=== PATIENT | female | born 1965 | race Caucasian/White ===

== ENCOUNTER 2019-06-28 07:11 | Inpatient (IN) ==
[2019-06-28] MEDS ORDERED: SODIUM CHLORIDE 0.9% 1000ML 1,000 ML IV SCH (07:45)
[2019-06-28 08:25] LABS: Hematocrit (blood only) 40.6 % (37-47); Hemoglobin 14.4 g/dL (12.0-16.0); Mean Corpuscular Hemoglobin 35.1 pg (25-34); Mean Corpuscular Hgb Conc 35.5 g/dL (32-36); RDW Coefficient of Variation 13.9 % (11.5-14.5); RDW Standard Deviation 49.9 fL (36.4-46.3); White Blood Count 4.79 K/uL (4.8-10.8)
[2019-06-28] MEDS ORDERED: LORazepam 1 MG/2 ML VIAL IV STA (08:44)
[2019-06-28] MEDS ORDERED: MULTI-VITAMIN INFUSION 10 ML, THIAMINE HCL 100 MG, FOLIC ACID 1 MG in SODIUM CHLORIDE 0... IV ONE (08:44)
[2019-06-28 08:56] LABS: Basophils # (auto) 0.01 K/uL (0-0.2); Basophils % (auto) 0.2 %; Eosinophils # (auto) 0.04 K/uL (0-0.5); Eosinophils % (auto) 0.8 %; Immature Granulocytes # (auto) 0.01 K/uL (0.00-0.02); Immature Granulocytes % (auto) 0.2 %; Lymphocytes # (auto) 0.49 K/uL (1.2-3.4); Lymphocytes % (auto) 10.2 %; Mean Platelet Volume 10.8 fL (7.4-10.4); Monocytes # (auto) 0.91 K/uL (0.11-0.59); Neutrophils # (auto) 3.33 K/uL (1.4-6.5); Neutrophils % (auto) 69.6 %; Platelet Count 94 K/uL (130-400); Platelet Estimate Decreased (Normal)
[2019-06-28 09:03] LABS: Albumin Globulin Ratio 1.2 (0.9-2); Albumin Level 4.4 gm/dl (3.4-5.0); BUN Creatinine Ratio 23.2 (10-20); Calcium 9.4 mg/dl (8.5-10.1); Creatinine Clr Calc Pharmacy 114.8 ml/min; Est GFR (African American) 124.9; Est GFR (Non-African American) 107.7; Globulin 3.8 gm/dl (2.5-4.0); Thyroid Stimulating Hormone 2.35 uIu/ml (0.300-4.500); Total Protein 8.2 gm/dl (6.4-8.2); Troponin I 0.032 ng/ml (0-0.045)
--- NOTE | 2019-06-28 09:16 | CT Scan Report ---
CT SCAN OF THE BRAIN WITHOUT IV CONTRAST CLINICAL HISTORY: Hallucinations. COMPARISON STUDY: No priors. TECHNIQUE: Unenhanced axial CT scan of the brain is performed from the vertex to the skull base. A d ose lowering technique was utilized adhering to the principles of ALARA. CT DOSE: 537.48 mGy.cm FINDINGS: Brain parenchyma: The brain parenchyma is normal in appearance. There is no hemorrhage, mass effect, or evidence of acute territorial ischemia by CT criteria. Murguia-white matter differentiation is preser antonette. No extra-axial fluid collection is seen. Ventricles, sulci, cisterns: Normal in configuration. Intracranial vasculature: There is minimal atherosclerotic calcification of the cavernous carotid art eries. Calvarium: Unremarkable. Sinuses and mastoids: There is a 10 mm retention cyst in the left maxillary antrum. The remaining vis ualized paranasal sinuses are clear. The mastoid air cells are well pneumatized. Orbits: The bony orbits are grossly intact. IMPRESSION: No acute intracranial abnormality. ACT 112: Negative or not required by law. Electronically signed by: Michael Pham M.D. 06/28/2019 9:15 AM
[2019-06-28 09:41] LABS: Appearance Urine Clear (Clear); Bilirubin Urine Negative (Negative); Blood Urine Negative (Negative); Color Urine Yellow; Glucose Urine UA Negative (Negative); Ketones Urine Trace (Negative); Leukocyte Esterase Urine Negative (Negative); Nitrite Urine Negative (Negative); Protein Urine Negative (Negative); Specific Gravity Urine 1.009 (1.000-1.030); Urobilinogen Urine Negative (Negative); pH Urine 7.5 (4.5-7.5)
--- NOTE | 2019-06-28 09:47 | History & Physical Report ---
Date of Service June 28, 2019 Assessment & Plan (1) Visual hallucinations: - Admit to med surg with tele - 1:1 observation - Safe tray - These hallucinations are grandiose, people including a pirate, a cowboy, 2 other adults who were attempting to break into a car across the street, and multiple children. Patient currently reports there is a woman in her room who is a good friend of hers, and thinks the bed railing is a sleeve of somebody's shirt/coat. - Previous hallucination episodes have occurred during heavy alcohol use - ie 2 yrs ago and 6 yrs ago. - Psych consult ordered (2) Mood disorder: - Psych consulation - Pt displays characteristics consistent with Bipolar type 1 disorder: binge drinking, partying, not sleeping for a week at a time, bursts of energy to clean her home, irritability, followed severely depressed episodes where she cannot seem to stop crying and has a very low mood. She denies any SI or HI. - Never tried medication in the past, would consider Seroquel or Latuda in this setting but will defer to psych (3) Alcohol withdrawal: - Significant etoh use in the past 2.5 weeks likely triggering her hallucinations. -Gabapentin withdrawal protocol with loading dose now -Patient is currently tachycardic, slightly diaphoretic. -Last drink was last evening around midnight prior to presenting to the ER. She was discharged early this morning and then re-presented to the ER around 5:30 AM. Daughter notes that she did not drink any etoh in between being in the hospital both times. She was given dose of Ativan x2 while in the ER last evening. -Patient was hypokalemic last evening but appears to be corrected at this time with recent BMP draw showing K+ = 3.6. Received banana bag in the ER this morning. -Continue thiamine, folic acid, multivitamin daily (4) Elevated liver enzymes: -AST= 183, ALT = 285, trend with a.m. labs -Acute incite secondary to etoh use (5) Right hip pain: - Difficulty walking for few days, previously has no issues with R hip. Unable to recall if she fell but has not been able to put much weight on that leg without significant pain and has reduced mobility. - Check Xray now to r/o fx, CT head was done and is negative for acute abnormalitis - Consider PT/OT consults - Pain control with small doses of tylenol for now, monitoring LFTs, no narco tics with hallucinations, avoid NSAIDs in the setting of heavy etoh use. (6) DVT prophylaxis: - eduar CODE: FULL Dispo: From home, likely to remain in the hospital x 1-2 day for medical management and then transfer to inpatient psych History of Present Illness Primary Care Provider: NO PCP This is a 53 yo F with PMHx of chronic alcohol use, hallucinations, elevated LFTs, hypokalemia who presented to the ER last night for increased hallucinations. The patient returns this morning after being discharged home last evening because of hallucinations worsened. She notes that she was recently down in [place] for 2 weeks, returned on 06/24/19. During that time she would drink up to 12 drinks per night, going from bar to bar late into the night. Since coming home the daughter notes that she has continued to drink however the patient states that her last drink was last evening and only had 1 glass of wine yesterday. Daughter notes that his her behavior regarding alcohol is typical and that she drinks much more often than letting on during my interview. She reports that hallucinations started 2 days ago. She describes it as multiple people including a pirate, cowboy, and two other people who she thought possibly were trying to break into a car across the street from her house, and multiple small children running around. She reports that she attempted to talk to these people last evening but that they would not respond her. She thought it was very strange and felt afraid of these people because she was unsure what they were doing. She also reports last evening after coming home from the ER that she felt as if a shadow was looking in her upstairs hallway, and thought that it was appearing in on her, initially thought maybe it was her , but knew that it could not be him. Patient currently reports there is a woman in her room who is a good friend of hers but that she wont say anything, as pt motions to the wall behind her during the interview, she also thinks the bed railing is a sleeve of somebody's shirt/coat. Patient had burst of energy in the past week where she has been unable to sleep for more than 2 to 3 hours per night. She admits to dressing up and walking around in high heeled shoes all through [place], where normally she would dress in a flat shoe, "like a croc" when she knew she would be walking. Her right hip has been painful for her to place weight on it since coming home Wednesday, and thinks its due to the shoes, but cannot recall if she fell or not. Patient notes she has had the urge to "tear down a closet to clean it" recently at 2am. She denies feeling the urge to buy things impulsively which she cannot afford. She admits to irritability and mood swings daily, followed severely depressed episodes where she cannot seem to stop crying and has a very low mood. Denies suicidal ideations and homicidal ideations. The daughter notes that in 2013 the patient had a similar hallucination episode like this, but was after the of her son. She started using alcohol at that time very heavily which lead to increased visual hallucinations. Daughter cannot recall type of treatment she required after this breakdown. Pt has never has sought out counseling, been evaluated by psychiatry, or been on other forms of medication for mood disorder. Last episode of hallucination was approximately 2 years ago and again involved heavy alcohol use. On a normal day, she has 3-4 drinks at a time. Social Hx -Pt lives independently. Pt works in [place] the majority of the time, and will not be in town until end of July. Daughter is local and lives in her own apartment. -Patient is currently unemployed, occasionally babysits, last time was 3 months ago. 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 -Never used tobacco products, denies illicit drug use -Never incarcerated -Support system includes and daughter, daughter's boyfriend is also present here today Family Hx: - Mother with psychiatric issues, nondiagnosed, including irritability and anger outbursts, mood swings, euphoric at times. Allergies Allergy/AdvReac Type Severity Reaction Status Date / Time codeine AdvReac Vomiting Verified 06/28/19 07:25 Home Medications Home Medications Medication Instructions Recorded Confirmed Type lorazepam [Ativan] 1 mg PO HS PRN 06/28/19 06/28/19 History Past Med/Surg History Family History Other No significant family history Social History Preferred Language: Tamazight Communication Ability: Effective Licensed Certified Orthotist Required: No Beliefs That Will Affect Care: Zoroastrian Zoroastrian Beliefs: Cheondoism Current Living Situation: Spouse Current Living Situation Comment: spouse works 22 hours away Other Information That Helps Us Care for You: Yes ( works 22 hours away, father in home/dementia. mother bossy/unhelpfu) Feels Safe at Home: Yes Safety Concerns: Feels Safe At This Time Smoking Status: Former smoker Do You Dip or Chew Tobacco: No ; Second Hand Exposure: No ; Tobacco Cessation Education Requested by Patient: No Hx Alcohol Use: Yes Alcohol type: wine Hx Substance Use: Yes substance use type: prescription drug Substance Use Type Other:: lorazepam Review of Systems Review of Systems: Constitutional: No fever, sweats or chills Eyes: No diplopia, no worsening or blurred vision ENT: normal hearing, no trouble swallowing Respiratory: No cough, sputum, dyspnea at rest or on exertion Cardiovascular: No chest pain, tightness or palpitations Abdomen: No pain, nausea, vomiting, diarrhea or constipation Musculoskeletal: + Right hip pain, no other joint pain, calf pain, swelling Neurologic: No weakness, numbness/tingling, or balance problems Psychiatric: + Visual hallucinations, multiple people nonthreatening to her, no auditory hallucinations, + alcohol use Skin: No rash or itch Physical Exam Physical Exam: General: awake, alert, speaks rapidly throughout exam, well kempt, cooperative Head: Normocephalic, atraumatic ENT: PERRL, EOMI, no pharyngeal exudate, mucous membranes moist Chest: Clear to auscultation, on room air, no adventitious breath sounds Cardiac: + Sinus tach, no murmur, no JVD, normal peripheral pulses, good capillary refill Abdominal: NABS x 4 quadrants, soft, nontender to palpation, no rebound, guarding or tenderness Extremities: Normal inspection, no peripheral edema or erythema, calfs nontender to palpation Psych: Depressed mood and sad affect, good eye contact, increased restlessness during times looking for things in her purse. Thought process with flight of ideas, easily distracted with stories during conversation, rapid speech, has difficulty using the correct word in sentences to describe things. No SI or HI. Neuro: AAO x 3, strength intact bilaterally and related 5/5, no motor deficits, speech is clear, no peripheral sensory deficits Skin: no rash or erythema Constitutional: WD/WN, vitals as above Eyes: normal visual march by confrontation and + anicteric sclerae Neck: normal visual inspection and trachea midline Respiratory: normal respiratory effort, lungs clear to auscultation Cardiovascular: Rate/Rhythm: regular rhythm and + tachycardic Gastrointestinal (Abdomen): Inspection/Auscultation: abdomen not distended Percussion/Palpation: abdomen soft; abdomen nontender Musculoskeletal: Head/Neck/Chest: normocephalic and head atraumatic Neg for peripheral LE edema, + pedal pulses Skin: no rashes, warm and dry Neurologic: awake; not confused Speech / Cognition: normal speech Expressing concerns appropriately, good verbalization and eye contact Psychiatric: Orientation: oriented x 3 Apperance: appropriately groomed Speech: normal rate/rhythm/volume of speech Affect: + anxious affect Lymphatic: Exam as done by Gayle Richards DO Results & Data Vital Signs (Past 12 Hours) Vital Signs Temp Pulse Pulse Resp BP BP Pulse Ox 06/28/19 09:12 85 17 140/96 95 06/28/19 07:16 37.0 C 91 H 16 131/[address] SCAN OF THE BRAIN WITHOUT IV CONTRAST CLINICAL HISTORY: Hallucinations. COMPARISON STUDY: No priors. TECHNIQUE: Unenhanced axial CT scan of the brain is performed from the vertex to the skull base. A dose lowering technique was utilized adhering to the principles of ALARA. CT DOSE: 537.48 mGy.cm FINDINGS: Brain parenchyma: The brain parenchyma is normal in appearance. There is no hemorrhage, mass effect, or evidence of acute territorial ischemia by CT criteria. Murguia-white matter differentiation is preserved. No extra-axial fluid collection is seen. Ventricles, sulci, cisterns: Normal in configuration. Intracranial vasculature: There is minimal atherosclerotic calcification of the cavernous carotid arteries. Calvarium: Unremarkable. Sinuses and mastoids: There is a 10 mm retention cyst in the left maxillary antrum. The remaining visualized paranasal sinuses are clear. The mastoid air cells are well pneumatized. Orbits: The bony orbits are grossly intact. IMPRESSION: No acute intracranial abnormality. ECG Additional Comments: 28-JUN-2019 08:06:54 [facility]-EDSTAT ROUTINE RETRIEVAL Undetermined rhythm Cannot rule out Anterior infarct , age undetermined Abnormal ECG When compared with ECG of 19-MAR-2015 21:27, Current undetermined rhythm precludes rhythm comparison, needs review ST no longer elevated in Inferior leads T wave inversion no longer evident in Inferior leads 25mm/s 10mm/mV 150Hz 9.0.9 12SL 241 KING: 16 Referred by: REFERRED SELF Unconfirmed Vent. rate 78 BPM AK interval 128 ms QRS duration 74 ms QT/QTc 394/449 ms P-R-T axes 58 63 50 Code Status & VTE Plan Code Status Full Code - discussed with pt and daughter at bedside Supervising Physician Co-Signing Physician Notes Pt seen and examined by me. She had just got out of a hot shower when I came into room and states that did help her to feel a bit better, but she is very anxious because she has continued to have hallucinations since admission. She is anxious for tx as these hallucinations are disturbing to her, but also nervous because "I don't want to be a zombie". Denies chest pain or SOB. Tolerating some PO but is not eating much due to anxiety. Agree with HPI/ROS as noted by PA See above for my exam in PE section Agree with plan as outlined above Hallucinations, alcohol use vs underlying psych disorder seem most likely Seen by psych nurse, awaiting formal eval by psych team. Gabapentin alcohol withdrawal protocol, PRN ativan PG Care Time/CCT Total # of Minutes Spent Total Time Spent with Patient: Total time spent is greater than 50% in coordination of care (as documented) at patient's floor/unit and/or counseling patient: Coding Level of Care Code 09205 Initial Inpt Care Lvl 3 Diagnoses Visual hallucinations R44.1 Mood disorder F39 Alcohol withdrawal F10.239 Complication of substance-induced condition: with unspecified complication Elevated liver enzymes R74.8 Right hip pain M25.551 DVT prophylaxis Z29.9 (1) Alcohol withdrawal Complication of substance-induced condition: with unspecified complication Qualified Code(s): F10.239 - Alcohol dependence with withdrawal, unspecified
[2019-06-28 10:12] LABS: Magnesium 1.6 mg/dl (1.8-2.4); Potassium 3.6 mmol/L (3.5-5.1)
[2019-06-28] MEDS ORDERED: GABAPENTIN 800MG ALCOHOL WITHDRAWAL LOAD PO ONE (11:17)
[2019-06-28] MEDS ORDERED: GABAPENTIN 400 MG CAP PO ONE (11:17)
--- NOTE | 2019-06-28 11:58 | XRay Report ---
XR hip RT min 2V CLINICAL HISTORY: Difficulty walking, alcohol use, concern for fall/fx. COMPARISON: None. DISCUSSION: No fractures or dislocations are visualized. There are no erosive or destructive changes. The joint space appears well preserved for age. IMPRESSION: No fractures or dislocations identified. ACT 112: Negative or not required by law. Electronically signed by: Isreal Rodríguez M.D. 06/28/2019 11:57 AM
[2019-06-28] MEDS ORDERED: ONDANSETRON INJ 2 MG/ML 2 ML VIAL IV PRN (12:11)
--- NOTE | 2019-06-28 12:24 | Electrocardiogram Report ---
Test Reason : Blood Pressure : / mmHG Vent. Rate : 078 BPM Atrial Rate : 077 BPM P-R Int : 128 ms QRS Dur : 074 ms QT Int : 394 ms P-R-T Axes : 058 063 050 degrees QTc Int : 449 ms Poor data quality, interpretation may be adversely affected Sinus rhythm Cannot rule out Anterior infarct , age undetermined Abnormal ECG When compared with ECG of 19-MAR-2015 21:27, No significant change Confirmed by Brady Rivera ([id number]) on 06/28/2019 12:23:57 PM Referred By: REFERRED SELF Confirmed By:Brady Rivera
[2019-06-28] MEDS: SODIUM CHLORIDE 0.9% 1000ML 1,000 ML IV SCH ×2 (12:55→22:04)
[2019-06-28] MEDS ORDERED: MAGNESIUM SULFATE / D5W 1 GM/100 ML BAG IV ONE (13:15)
--- NOTE | 2019-06-28 16:36 | Emergency Department Note ---
Entered by Areli Santiago acting as a scribe for Pritesh Day MD ED Provider Note CHIEF COMPLAINT: Hallucinations HISTORY OF PRESENT ILLNESS: The patient is a 53 year old female who presents to the Emergency Room with complaints of persistent hallucinations starting 1 day ago. The patient reports that she came to the [facility] Emergency Department 1 day ago because she had 2 episodes of hallucinations after drinking a glass of wine. She explains that she was discharged with her friend, who supervised the patient during the entire tie she was out of the hospital, but continued experiencing hallucinations which prompted her visit back to the ED this morning. She states that during these hallucinations she sees people in her back yard and alongside the road. She explains that some of these people have guns and are trying to kill her. She notes that she has been talking to these people and has been trying to fight them. She adds that she has been experiencing these hallucinations for the past day and that they started after drinking a glass of wine. The patient reports that she has never experienced these symptoms before however the patients family explains that the patient did hallucinate 6 years ago after the patients son and that the patient ended up trying to kill herself by overdosing on alcohol. The patients family states that that the patient has been drinking daily but recently traveled to [place] to visit her 1 week ago and that this trip worsened her drinking. They explain that when they picked the patient up from this trip she was drunk, nauseated and vomiting. They note that the patient usually drink 1 to 4 glasses of bourbon per day. They add that the patient has not been left alone. The patient reports that when she came to the hospital 1 day ago for these same symptoms she was given Ativan that improved her nausea and insomnia. She states that her father has dementia and that this has worsened her mood and stressed her out, driving her to drink more alcohol. Pt denies LOC, headache, fevers, chills, diaphoresis, neck pain, chest pain, breathing difficulties, back pain, melena, hematochezia, urinary symptoms, numbness, weakness, lymphadenopathy, rash, or other complaints. REVIEW OF SYSTEMS: See HPI for pertinent positives and negatives. A total of ten systems were reviewed and were otherwise negative. PMHx/PSHx: Anxiety, Hallucinations, HTN, Mood disorder, Pneumonia. SOCIAL HISTORY: Patient lives at home. Former smoker. PHYSICAL EXAM: GENERAL: Patient is anxious appearing. Awake, alert, in no distress HENT: Normocephalic, atraumatic. Oropharynx unremarkable. EYES: PERRL. Normal conjunctiva. Sclera non-icteric. NECK: Inspection normal. Non-tender. Supple. No nuchal rigidity. FROM. No masses. RESPIRATORY: Clear to auscultation. No wheezes. No rales. Normal respiratory effort. CARDIAC: Normal rate. Normal rhythm. No murmurs. No rubs. Extremities warm and well perfused. Pulses equal. No JVD. GI: Soft, non-distended. No tenderness to palpation. No rebound or guarding. No masses. RECTAL: Deferred. MUSCULOSKELETAL: Atraumatic. Chest examination reveals no tenderness. The back is symmetrical on inspection without obvious abnormality. There is no CVA tenderness to palpation. No joint edema. LOWER EXTREMITIES: Calves are equal size bilaterally and non-tender. No edema. No discoloration. NEURO: Normal sensorium. No sensory or motor deficits noted. Cranial nerves intact. PSYCH: Auditory and visual hallucinations. No SI. Speech was pressured but normal. SKIN: No rash or jaundice noted. EMERGENCY DEPARTMENT COURSE: 0738: Past medical records reviewed. The patient was evaluated in room A6, and a complete history and physical examination were performed. 09: I discussed the patients case with Yocasta Herrera PA-C. Dr. Richards [facility] hospitalist will evaluate the patient for further management. MEDICAL DECISION MAKING: Prior records/ancillary studies reviewed. Triage Nursing notes reviewed and agree them. Additional history obtained from the family. The patient's history was concerning for visual and auditory hallucinations and history of alcohol use. Differential diagnosis: Etiologies such as alcohol withdrawal, toxicologic, infection, hypoglycemia, electrolyte abnormalities, cardiac sources, intracerebral event, neurologic, m ood disorder, thought disorder as well as others were entertained. Physical examination: The patient had normal sensorium although there was some periods with visual hallucinations.. No trauma noted. ER treatment provided: IV NSS 1 L bolus Banana bag IV IV Ativan Diagnostic interpretation by me: The electrocardiogram was negative for pathologic change. There was no QRS widening or interval prolongation. The labs revealed an unremarkable CBC and chemistry panel. Hypokalemia improved. Tox cream negative. Imaging studies: CT imaging of the brain was performed and was negative for acute process. The patient will need to be evaluated by medicine as well as psychiatry. Her significant alcohol use puts her at risk for withdrawal. Consultation: A consultation was placed with the hospitalist. The case was discussed and diagnostics were reviewed. The patient was evaluated in the ER for further treatment. IMPRESSION: Visual hallucinations, Elevated LFTs, Alcohol withdrawal PLAN: Being Evaluated by Hospitalist The scribe's documentation has been prepared under my direction and personally reviewed by me in its entirety. I confirm that the note above accurately reflects all work, treatment, procedures, and medical decision making performed by me. 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 mother bossy/unhelpfu) Feels Safe at Home: Yes Safety Concerns: Feels Safe At This Time Smoking Status: Former smoker Do You Dip or Chew Tobacco: No ; Second Hand Exposure: No ; Tobacco Cessation Education Requested by Patient: No Hx Alcohol Use: Yes Alcohol type: wine Hx Substance Use: Yes substance use type: prescription drug Substance Use Type Other:: lorazepam Results & Data Vital Signs Vital Signs - 24 hr 06/28/19 07:16 06/28/19 09:12 Temperature 37.0 C Temperature Source Oral Pulse Rate 91 H Pulse Rate [Apical] 85 Pulse Rhythm [Apical] Regular Respiratory Rate 16 17 Respiratory Effort / Characteristics Non-Labored Spontaneous Spontaneous Respiratory Depth Normal Respiratory Pattern Regular Blood Pressure 131/89 Blood Pressure [Left Arm] 140/96 Blood Pressure Mean 103 Blood Pressure Mean [Left Arm] 110 Blood Pressure Position Sitting Pulse Oximetry 96 95 Oxygen Delivery Method Room Air Room Air Sepsis Recent Fever Within 48 Hours No Sepsis New/Unexplained Change in Mental Status No Sepsis Action Taken by Nursing No Action Required Home Medications Current Medication List: was personally reviewed by me Laboratory Data Attestation: I reviewed the patient's lab results. Result diagrams: 06/28/19 08:10 06/28/19 09:38 Lab Results 06/28/19 06/28/19 06/28/19 Range/Units 08:10 08:10 09:05 WBC 4.79 L (4.8-10.8) K/uL RBC 4.10 L (4.2-5.4) M/uL Hgb 14.4 (12.0-16.0) g/dL Hct 40.6 (37-47) % MCV 99.0 (80-100) fL MCH 35.1 H (25-34) pg MCHC 35.5 (32-36) g/dL RDW Std Deviation 49.9 H (36.4-46.3) fL RDW Coeff of Cj 13.9 (11.5-14.5) % Plt Count 94 L (130-400) K/uL MPV 10.8 H (7.4-10.4) fL Immature Gran % (Auto) 0.2 % Neut % (Auto) 69.6 % Lymph % (Auto) 10.2 % [place] % (Auto) 19.0 % Eos % (Auto) 0.8 % Baso % (Auto) 0.2 % Immature Gran # (Auto) 0.01 (0.00-0.02) K/uL Neut # (Auto) 3.33 (1.4-6.5) K/uL Lymph # (Auto) 0.49 L (1.2-3.4) K/uL [place] # (Auto) 0.91 H (0.11-0.59) K/uL Eos # (Auto) 0.04 (0-0.5) K/uL Baso # (Auto) 0.01 (0-0.2) K/uL Platelet Estimate Decreased L (Normal) Sodium 138 (136-145) mmol/L Potassium (3.5-5.1) mmol/L Chloride 103 (98-107) mmol/L Carbon Dioxide 25 (21-32) mmol/L Anion Gap 10.0 (3-11) BUN 13 (7-18) mg/dl Creatinine 0.54 L (0.6-1.2) mg/dl Est Cr Clr Drug Dosing 114.8 ml/min Est GFR ( Amer) 124.9 Est GFR (Non-Af Amer) 107.7 BUN/Creatinine Ratio 23.2 H (10-20) Glucose 98 (70-99) mg/dl Calcium 9.4 (8.5-10.1) mg/dl Magnesium (1.8-2.4) mg/dl Total Bilirubin 1.0 (0.2-1) mg/dl AST (15-37) U/L ALT 285 H (12-78) U/L Alkaline Phosphatase 74 (45-117) U/L Troponin I 0.032 (0-0.045) ng/ml Total Protein 8.2 (6.4-8.2) gm/dl Albumin 4.4 (3.4-5.0) gm/dl Globulin 3.8 (2.5-4.0) gm/dl Albumin/Globulin Ratio 1.2 (0.9-2) TSH 2.350 (0.300-4.500) uIu/ml Urine Color Yellow Urine Appearance Clear (Clear) Urine pH 7.5 (4.5-7.5) Ur Specific [place] 1.009 (1.000-1.030) Urine Protein Negative (Negative) Urine Glucose (UA) Negative (Negative) Urine Ketones Trace H (Negative) Urine Blood Negative (Negative) Urine Nitrite Negative (Negative) Urine Bilirubin Negative (Negative) Urine Urobilinogen Negative (Negative) Ur Leukocyte Esterase Negative (Negative) 06/28/19 Range/Units 09:38 WBC (4.8-10.8) K/uL RBC (4.2-5.4) M/uL Hgb (12.0-16.0) g/dL Hct (37-47) % MCV (80-100) fL MCH (25-34) pg MCHC (32-36) g/dL RDW Std Deviation (36.4-46.3) fL RDW Coeff of Cj (11.5-14.5) % Plt Count (130-400) K/uL MPV (7.4-10.4) fL Immature Gran % (Auto) % Neut % (Auto) % Lymph % (Auto) % [place] % (Auto) % Eos % (Auto) % Baso % (Auto) % Immature Gran # (Auto) (0.00-0.02) K/uL Neut # (Auto) (1.4-6.5) K/uL Lymph # (Auto) (1.2-3.4) K/uL [place] # (Auto) (0.11-0.59) K/uL Eos # (Auto) (0-0.5) K/uL Baso # (Auto) (0-0.2) K/uL Platelet Estimate (Normal) Sodium (136-145) mmol/L Potassium 3.6 D (3.5-5.1) mmol/L Chloride (98-107) mmol/L Carbon Dioxide (21-32) mmol/L Anion Gap (3-11) BUN (7-18) mg/dl Creatinine (0.6-1.2) mg/dl Est Cr Clr Drug Dosing ml/min Est GFR ( Amer) Est GFR (Non-Af Amer) BUN/Creatinine Ratio (10-20) Glucose (70-99) mg/dl Calcium (8.5-10.1) mg/dl Magnesium 1.6 L (1.8-2.4) mg/dl Total Bilirubin (0.2-1) mg/dl AST 183 H (15-37) U/L ALT (12-78) U/L Alkaline Phosphatase (45-117) U/L Troponin I (0-0.045) ng/ml Total Protein (6.4-8.2) gm/dl Albumin (3.4-5.0) gm/dl Globulin (2.5-4.0) gm/dl Albumin/Globulin Ratio (0.9-2) TSH (0.300-4.500) uIu/ml Urine Color Urine Appearance (Clear) Urine pH (4.5-7.5) Ur Specific [place] (1.000-1.030) Urine Protein (Negative) Urine Glucose (UA) (Negative) Urine Ketones (Negative) Urine Blood (Negative) Urine Nitrite (Negative) Urine Bilirubin (Negative) Urine Urobilinogen (Negative) Ur Leukocyte Esterase (Negative) Administered Medications Sodium Chloride (Nss 1000ml) 1,000 mls @ 125 mls/hr IV .Q8H SAM Stop: 06/29/19 12:10 Last Admin: 06/28/19 12:55 Dose: 125 mls/hr Documented by: [id number] Discontinued Medications Gabapentin (Gabapentin 800mg Alcohol Withdrawal Load) 1 ea PO ONE ONE; Protocol Stop: 06/28/19 11:18 Last Admin: 06/28/19 12:54 Dose: 1 ea Documented by: [id number] Gabapentin (Neurontin) 800 mg PO NOW ONE Stop: 06/28/19 11:18 Last Admin: 06/28/19 14:07 Dose: Not Given Documented by: [id number] Sodium Chloride (Nss 1000ml) 1,000 mls @ 999 mls/hr IV .Q1H1M SAM Stop: 06/28/19 08:45 Last Infusion: 06/28/19 09:35 Dose: 0 mls/hr Documented by: [id number] Admin: 06/28/19 08:20 Dose: 999 mls/hr Documented by: [id number] Lorazepam (Ativan) 1 mg in 2 mls @ 2 mls/min IV NOW STA Stop: 06/28/19 08:45 Last Admin: 06/28/19 08:48 Dose: 2 mls/min Documented by: [id number] Multivitamins 10 ml/ Thiamine HCl 100 mg/ Folic Acid 1 mg/Sodium Chloride 1 ,011.2 mls @ 1,011.2 mls/hr IV .Q1H ONE Stop: 06/28/19 09:43 Last Infusion: 06/28/19 11:02 Dose: 0 mls/hr Documented by: [id number] Admin: 06/28/19 09:35 Dose: 1,011.2 mls/hr Documented by: [id number] Magnesium Sulfate/Dextrose (Magnesium Sulfate / D5w) 1 gm in 100 mls @ 100 mls/hr IV ONE ONE Stop: 06/28/19 14:14 Last Infusion: 06/28/19 15:47 Dose: 0 mls/hr Documented by: [id number] Admin: 06/28/19 14:40 Dose: 100 mls/hr Documented by: [id number] Imaging Data Radiologist's Impression: Radiology results as stated below per my review and the radiologist's interpretation: CT SCAN OF THE BRAIN WITHOUT IV CONTRAST CLINICAL HISTORY: Hallucinations. COMPARISON STUDY: No priors. TECHNIQUE: Unenhanced axial CT scan of the brain is performed from the vertex to the skull base. A dose lowering technique was utilized adhering to the principles of ALARA. CT DOSE: 537.48 mGy.cm FINDINGS: Brain parenchyma: The brain parenchyma is normal in appearance. There is no hemorrhage, mass effect, or evidence of acute territorial ischemia by CT criteria. [place]-white matter differentiation is preserved. No extra-axial fluid collection is seen. Ventricles, sulci, cisterns: Normal in configuration. Intracranial vasculature: There is minimal atherosclerotic calcification of the cavernous carotid arteries. Calvarium: Unremarkable. Sinuses and mastoids: There is a 10 mm retention cyst in the left maxillary antrum. The remaining visualized paranasal sinuses are clear. The mastoid air cells are well pneumatized. Orbits: The bony orbits are grossly intact. IMPRESSION: No acute intracranial abnormality. ACT 112: Negative or not required by law. Electronically signed by: Michael Pham M.D. 06/28/2019 9:15 AM ECG Data Attestation: I personally reviewed and interpreted this ECG as follows: Indication: + nausea Rate (beats per minute): 78 Rhythm: sinus rhythm ECG Intervals/blocks: + Normal QRS ECG Ruby: + Normal ECG ST segments: no ST depression and no ST elevation ECG Findings: + Other (Poor R wave progression.) Comparison ECG Date: from (03/19/15) Change: no significant change Blood Pressure Blood Pressure Findings: Elevated blood pressure Blood Pressure Disposition: further management by hospitalist Discharge Plan Visit Data *Final* Discharge Date/Time: 06/28/19 11:26 Chief Complaint: Mental Health Evaluation Stated Complaint: HALUCINATIONS GOTTEN WORSE-SEEN EARLIER ED Provider: Pritesh Day ED Midlevel Provider: Lisha Hurtado Discharge Problem: Visual hallucinations, Elevated LFTs, Alcohol withdrawal Patient Disposition: Admitted As Inpatient Discharge Instructions Interventions: ED Discharge Assessment Last Done: 06/28/19 11:26 Discharge Problem: Alcohol withdrawal Qualifiers: Complication of substance-induced condition: with unspecified complication Qualified Code(s): F10.239 - Alcohol dependence with withdrawal, unspecified The scribe's documentation has been prepared under my direction and personally reviewed by me in its entirety. I confirm that the note above accurately reflects all work, treatment, procedures, and medical decision making performed by me.
[2019-06-28] MEDS: GABAPENTIN 400 MG CAP PO SCH ×2 (17:38→23:20)
[2019-06-28] MEDS: ACETAMINOPHEN 325 MG TAB PO PRN (18:35)
[2019-06-28] MEDS ORDERED: LORazepam 0.5 MG/1 ML VIAL IV PRN (19:07)
[2019-06-28] MEDS ORDERED: LORazepam 1 MG TAB PO PRN (21:57)
[2019-06-28] MEDS ORDERED: LORazepam 1 MG/2 ML VIAL IV PRN ×2 (22:19→22:49)
[2019-06-28] MEDS ORDERED: LORazepam 3 MG/6 ML VIAL IV PRN (22:49)
[2019-06-28] MEDS ORDERED: ATIVAN IV ALCOHOL WITHDRAWL IV PRN (22:49)
[2019-06-28] MEDS: LORazepam 2 MG/4 ML VIAL IV PRN (23:19)
[2019-06-29] MEDS: LORazepam 2 MG/4 ML VIAL IV PRN (00:30)
[2019-06-29] MEDS: risperiDONE 1 MG TABLET PO PRN ×2 (00:31→07:31)
[2019-06-29] MEDS: SODIUM CHLORIDE 0.9% 1000ML 1,000 ML IV SCH (05:44)
--- NOTE | 2019-06-29 06:32 | Communication Note ---
Date of Service: June 29, 2019 Called to bedside for severe agitatation with visual hallucinations. Pt with hx severe EtoH abuse on gabapentin protocol. Tachycardic, AWSS 11. Risperidone given, Lorazpam AWSS 1-3mg IV orders placed. Pt improved and stable on recheck overnight.
[2019-06-29] MEDS ORDERED: GABAPENTIN 400 MG CAP PO SCH (07:15)
[2019-06-29] MEDS: MULTIVITAMIN TAB PO SCH (07:30)
[2019-06-29] MEDS: FOLIC ACID 400 MCG TAB PO SCH (07:30)
[2019-06-29 07:46] LABS: Hematocrit (blood only) 37.7 % (37-47); Hemoglobin 12.5 g/dL (12.0-16.0); Mean Corpuscular Hemoglobin 34.4 pg (25-34); Mean Corpuscular Hgb Conc 33.2 g/dL (32-36); Mean Corpuscular Volume 103.9 fL (80-100); Red Blood Count 3.63 M/uL (4.2-5.4); White Blood Count 3.54 K/uL (4.8-10.8)
[2019-06-29 08:14] LABS: Mean Platelet Volume 10.3 fL (7.4-10.4); Platelet Count 74 K/uL (130-400)
[2019-06-29 08:25] LABS: Alanine Aminotransferase 220 U/L (12-78); Albumin Globulin Ratio 1.1 (0.9-2); Albumin Level 3.3 gm/dl (3.4-5.0); Alkaline Phosphatase 61 U/L (45-117); Aspartate Aminotransferase 163 U/L (15-37); BUN Creatinine Ratio 14.4 (10-20); Bilirubin,Total 0.7 mg/dl (0.2-1); Blood Urea Nitrogen 4 mg/dl (7-18); Calcium 7.8 mg/dl (8.5-10.1); Carbon Dioxide 22 mmol/L (21-32); Chloride 114 mmol/L (98-107); Creatinine Clr Calc Pharmacy 207.3 ml/min; Est GFR (African American) > 150.0; Est GFR (Non-African American) 130.7; Globulin 3.1 gm/dl (2.5-4.0); Glucose 78 mg/dl (70-99); Potassium 2.9 mmol/L (3.5-5.1); Sodium 144 mmol/L (136-145); Total Protein 6.4 gm/dl (6.4-8.2)
[2019-06-29 08:26] LABS: Bilirubin Direct < 0.1 mg/dl (0-0.2)
[2019-06-29] MEDS ORDERED: POTASSIUM CHLORIDE 20 MEQ TABCR PO STA (08:55)
[2019-06-29] MEDS ORDERED: THIAMINE HCL 100 MG TAB PO SCH (09:00)
--- NOTE | 2019-06-29 09:03 | Psychiatric Consultation ---
Date of Consultation June 29, 2019 Impression / Recommendations Impression Dr. Kathy Lizarraga was directly involved in review and discussion of the patient's case and participated in medical decision making regarding treatment recommendations. RECOMMENDATIONS: 06/29/2019 - It is presumed that patient's disorganized thought process and associated visual hallucinations is likely multifactorial - currently identified contributing factors include sleep depravation, recent illness, likely alcohol withdrawal, and other possible contributing factors. Agree with monitoring for signs/symptoms of alcohol withdrawal with AWSS protocol. Pt has been initiated on gabapentin taper to assist with these symptoms as well - and patient report previous adverse reaction to lorazepam - stating that it may have contributed to increased restlessness, hypervigilance, and possibly disorientation. They could not recall if the medication was correlated with visual hallucinations in the past - and it is reported the visual hallucinations began prior to admission, and therefore lorazepam administration - Could consider trial of chlordiazepoxide if primary team believes there is a correlation with lorazepam administration and increased restlessness - Dose of risperidone 1mg was recommended by our team last evening, as it was reported patient was not responding to lorazepam and was in significant distress related to the presence of visual hallucinations. Would not recommend consistent utilization of risperidone at this time, as there is no indication to use the medication to treat general symptoms of withdrawal. Consider use only for acute agitation/distress that places patient at risk of harm to self or others - It is unclear at this time if patient will require inpatient psychiatric treatment, as the cause of these symptoms is likely multifactorial and has yet to be clarified. It likely she would benefit from substance abuse treatment to target her chronic alcohol use. Unfortunately, we will be unable to make a formal psychiatric diagnosis as she has not been without substance use in some time. While her behavior prior to admission may mimic a bipolar presentation or other mood disorder, further evaluation while patient is sober from alcohol/substance use would be require to further assess for the presence of these symptoms. - Will continue to follow case and gather collateral information from patient's as able. It remains unclear exactly what is contributing to patient's presentation, and would not suggest scheduled psychotropic medications until we are able to further clarify diagnosis. Please reach out to our service with any additional questions or updates. Psych History Identifying Data 53-year-old female admitted medically on 06/28/2019 after presenting to the ED with complaints of visual hallucinations. She presented to the ED on 2 occasions within 24 hours of medical admission for these reports. Patient is being treated medically for suspected alcohol withdrawal as well as some electrolyte and platelet abnormalities. Psychiatric consultation was requested to evaluate the patient for the presence of these visual hallucinations and provide additional recommendations. Chief Complaint "Oh hi. That's my over there sleeping." [patient then pointed to a chair with her belongings piled on top, not present in room]. History of Present Illness Kamilla Sahu is a 53-year-old female admitted medically on 06/28/2023 reports of visual hallucinations was suspected alcohol withdrawal. Patient did present to the ED on 2 separate occasions, seemingly within 24 hours of recommendation for medical admission. Both presentations to the ED were for complaints of visual hallucinations. PMH for the patient includes chronic alcohol use - presenting now with elevated LFTs and hypokalemia. Patient did report to admitting provider that she was recently on vacation in [place], where she admits her alcohol use was significantly increased averaging about 12 drinks per night. History provided suggest that the patient has been continuing to consume alcohol, but significantly less since returning from his vacation. It was reported that the visual hallucinations began 2 days prior to her adm ission, and patient admitted seeing multiple people outside of her house including: A pirate, a cowboy, people breaking into cars, and "like a small circus." Patient had continued to report visual hallucinations during the admission process, additional information available in nursing and provider notes. Patient's daughter did report to admitting provider that she had a similar episode in 2013 shortly after the of her son. Documentation suggests that this episode was also correlated with excessive alcohol use and increased visual hallucinations. Psychiatric nurse liaison was met with patient on multiple occasions last evening, reporting deterioration in her condition as the night progressed. Earlier in the evening, patient was able to give some additional information regarding her present symptoms; however, was rather distressed during the encounter and continued to experience visual hallucinations. Second interaction with psychiatric nurse liaison was also attempted; however, patient was unable to participate in meaningful conversation due to the level of disorganized thought process. Patient is cooperative with psychiatric evaluation by this provider. She provides verbal consent to allow Jeannie Mcdonough PA-C to observe today's encounter. Initially during the conversation, patient is found to be in the room by herself. Patient is eating breakfast, and introduces her who she states is sleeping in a chair in the corner of the room. Patient directs the attention of this provider to a chair that has a pile of her belongings, with her not anywhere insight. Patient continues to address her , attempting to wake him up. Patient was able to provide some disorganized history, though the reliability of this information was questioned at the time. Patient states that she was recently in [place], and when she got off the plane "my eyes started to run, they were swollen and red." Patient states that she was diagnosed with conjunctivitis, and then developed gastroenteritis - causing her to be unable to sleep for several nights. Again attempts to wake up her who she believes is sleeping in the chair next to her. When asked what brought the patient into the hospital specifically, she states "I kept seeing things." Patient states that she was in her house, drinking a glass of wine, when she began to see shapes and figures outside of her window. Patient states that there are multiple people standing in her neighbor's yard, specifically a cowboy and "what looked like a whole little circus." Patient states that she was also seeing people attempting to break into vehicles, which prompted her to call for assistance. Patient states that when the people started to appear in her own yard, patient called 911 to report the incident. She states that police showed up to her residence and were unable to identify what the patient had been visualizing. The patient states "it was pretty clear it was something that only I could see. My blood pressure was getting so high at that point that they told me I should come to the hospital." Patient states that while in the hospital she has continued to experience visual hallucinations. Most distressing, was last evening when the patient states she observed a man engaging in sexual acts with other women "right in plain sight." Patient states that she has since changed rooms, and has been less distressed over continued visual hallucinations. While in the room speaking with her, the patient states that she is able to see 2 cats in the hallway "with their tails tied together." Patient continues to state that she realizes that they are hallucinations, "because I am the only one who can see them." Part of the way through our interview, patient's enters the room with plans to visit. Patient was caught off guard, as she believed that her was still sleeping in the chair near her bed. Despite this, she does provide verbal consent to allow him to participate in the interview. She begins to interrogate her as to where he was last night if he was not with her. Patient seems to have minimal recall of the events that occurred last evening, other than the distressing hallucinations. Patient's does confirm that the patient had been sick, and that he would believe that she was unable to sleep well for a period of time; however, he has been out of town and has not been directly observing her behavior. does admit that her alcohol use was increased while she was visiting him in [place], and he would not be surprised if her current behavior was related to possible withdrawal. is unable to estimate patient's alcohol consumption on a regular basis. He does state "I know that she carries a travel coffee mug that she feels with mostly water and some bourbon. She sips on that all day." Is been does admit that the patient experienced an increase in stress and anxiety over the past year for numerous reasons. He cites acute stressors of the of their sons best friend, the patient's father's declining health due to dementia, and the patient's mother's "mental health issues." He does admit that in the past she may have had adverse reactions to lorazepam, though he is unable to recall specifically what this might of been. He states that he believes that it might have made her more restless and hypervigilant. It was clear as conversation continued that the patient's level of distress was increasing, and it was felt best that patient be permitted to visit with her for a period of time to calm her anxiety. Information was provided as to the reasoning for a as needed dose of risperidone last evening, and our plans for psychiatric involvement in her case. They denied any other acute concerns at this time, and were informed our service would be following up today to gather additional information. Past Psychiatric History Outpatient Services: Denies current psychiatric providers, or history thereof Previous Psych Admissions: Denied History of Previous Suicide Attempt: No Past Medication Trials: Per reports: 1. Ativan - 1mg PO HS prn anxiety/insomnia Allergies Allergy/AdvReac Type Severity Reaction Status Date / Time codeine AdvReac Vomiting Verified 06/28/19 07:25 Home Medications Home Medications Medication Instructions Recorded Confirmed Type lorazepam [Ativan] 1 mg PO HS PRN 06/28/19 06/28/19 History Family History Pt denied known family history of psychiatric conditions. Substance Abuse History Reliability of information unknown due to level of patient's disorientation. Pt does admit to regular alcohol use - telling the liaison she consumes a glass of wine daily. There are several days a week in which she admits to heavy drinking to the point of blacking out (i.e. sporting events on TV, vacations, etc). states patient regularly carries a travel coffee mug filled with "mostly water and some bourbon" and "sips on it all day long." He is also unable to reliably quantify patient's alcohol consumption. 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) Marital Status: (to Bautista) Number Of Children: 2 children - son ; adult daughter Beliefs That Will Affect Care: Quaker (Lutheran) Psychological Trauma History Comment: of patient's son about 5 years ago, heroin overdose Patient History Medical History Anxiety (Acute) Hallucinations (Acute) Hypertension (Chronic) Mood disorder (Acute) Pneumonia (Resolved) Family History Other No significant family history Social History Preferred Language: Guatemalan Communication Ability: Effective Ferryboat Pilot Required: No Beliefs That Will Affect Care: Quaker (Lutheran) Quaker Beliefs: Evangelical Current Living Situation: Spouse Current Living Situation Comment: spouse works 22 hours away Other Information That Helps Us Care for You: Yes ( works 22 hours away, father in home/dementia. mother bossy/unhelpfu) Feels Safe at Home: Yes Safety Concerns: Feels Safe At This Time Smoking Status: Former smoker Do You Dip or Chew Tobacco: No ; Second Hand Exposure: No ; Tobacco Cessation Education Requested by Patient: No Hx Alcohol Use: Yes Alcohol type: wine Hx Substance Use: Yes substance use type: prescription drug Substance Use Type Other:: lorazepam Physical Exam Psychiatric: Orientation: alert, oriented to person and cooperative (pleasant, but has difficulty participating in productive interview); + not oriented to place (knows she is in the hospital, but not sure where) and + not oriented to time Apperance: appropriately dressed, + disheveled and appeared stated age Overweight appearing female seated on bed and appearing somewhat restless. Patient is appropriately dressed for situation, wearing paper scrubs. Patient does present as disheveled, hair is unkempt. Level of hygiene appearing appropriate for situation. Eye Contact: + fair eye contact (Somewhat distracted ,looking around room) Motor Behavior: + tremor (Observed in hands bilaterally as she moves items on her food tray) Speech: normal rate/rhythm/volume of speech (though some delay in responses to questions) Affect: + anxious affect Mood: + anxious mood Thought Process: + circumstantial thought process; + thought process not linear or logical (though seems to be mildly improved from reports last evening) and + thought process not clear or coherent Thought Content: + preoccupation (with visual hallucinations) and + paranoid Hallucinations: + visual hallucinations (numerous hallucinations reported since admission) Cognition: language grossly intact; + recent memory not intact and + attention not intact Insight: + impaired insight Judgement: + impaired judgement Vital Signs (Past 24 Hours): Last Vital Signs Temp 36.6 C 06/29/19 06:31 Pulse 83 06/29/19 06:31 Resp 16 06/29/19 06:31 BP 108/71 06/29/19 06:31 Pulse Ox 95 06/29/19 06:31 Review of Systems Constitutional: reports dizziness and grogginess Cardiovascular: denied Respiratory: denied Gastrointestinal: denied Neurological: admits to feeling disoriented Psychiatric: denies symptoms other than stated above Total of at least 10 systems reviewed, pertinent positives as above and in HPI. Results & Data (PSY) Medications Administered Acetaminophen (Tylenol) 650 mg PO Q4H PRN PRN Reason: Moderate Pain Stop: 07/28/19 12:10 Last Admin: 06/28/19 18:35 Dose: 650 mg Documented by: [id number] Folic Acid (Folvite) 400 mcg PO QAM [facility] Stop: 07/29/19 08:59 Last Admin: 06/29/19 07:30 Dose: 400 mcg Documented by: [id number] Gabapentin (Neurontin) 400 mg PO Q8H [facility] Stop: 06/29/19 23:16 Last Admin: 06/29/19 07:30 Dose: 400 mg Documented by: [id number] Lorazepam (Ativan) 1 mg in 2 mls @ 2 mls/min IV UD PRN; Protocol PRN Reason: EtOH Withdrawl AWSS Score 6,7 Stop: 07/28/19 22:48 Last Admin: 06/29/19 01:35 Dose: 2 mls/min Documented by: [id number] Lorazepam (Ativan) 2 mg in 4 mls @ 4 mls/min IV UD PRN; Protocol PRN Reason: EtOH Withdrawl AWSS Score 8,9 Stop: 07/28/19 22:48 Last Admin: 06/29/19 00:30 Dose: 4 mls/min Documented by: [id number] Admin: 06/28/19 23:19 Dose: 4 mls/min Documented by: [id number] Lorazepam (Ativan) 3 mg in 6 mls @ 4 mls/min IV ONCE PRN; Protocol PRN Reason: EtOH Withdrawl AWSS Score >=10 Stop: 07/28/19 22:48 Last Admin: 06/29/19 05:45 Dose: 4 mls/min Documented by: [id number] Multivitamins (Multivitamin Tab) 1 tab PO [facility] Stop: 07/29/19 08:59 Last Admin: 06/29/19 07:30 Dose: 1 tab Documented by: [id number] Ondansetron HCl (Zofran) 4 mg IV Q4H PRN PRN Reason: Nausea And Vomiting Stop: 07/28/19 12:10 Last Admin: 06/28/19 18:34 Dose: 4 mg Documented by: [id number] Risperidone (Risperdal) 1 mg PO Q6H PRN PRN Reason: Anxiety/Agitation Stop: 07/28/19 22:20 Last Admin: 06/29/19 07:31 Dose: 1 mg Documented by: [id number] Admin: 06/29/19 00:31 Dose: 1 mg Documented by: [id number] Thiamine HCl (Vitamin B-1) [facility] Stop: 07/29/19 08:59 Last Admin: 06/29/19 07:30 Dose: 100 mg Documented by: [id number] Coding Level of Care Code 03865 [facility] Lvl 3
[2019-06-29] MEDS: POTASSIUM CHLORIDE 40 MEQ in SODIUM CHLORIDE 0.9% 1000ML 1,000 ML IV SCH ×2 (09:18→17:02)
--- NOTE | 2019-06-29 11:23 | Hospitalist Progress Note ---
Date of Service June 29, 2019 Assessment & Plan (1) Visual hallucinations: * Decreasing -- patient initially with continuing and frequent hallucinations including pirate, a cowboy, 2 other adults who were attempting to break into a car across the street, and multiple children. Patient yee rramol reports there is a woman in her room who is a good friend of hers, and thinks the bed railing is a sleeve of somebody's shirt/coat. Thought there was a movie event that they weren't going to. A democrat last evening with people shouting. Thoughts of having an affair * 1:1 observation for agitation when family not present in room. Safe tray. * History of alcohol abuse. 5 years ago following son's and last year after son's * Psych consult -- appreciate input (2) Alcohol withdrawal: * Significant etoh use in the past 2.5 weeks likely triggering her hallucinations. Last drink evening of 06/27 prior to presenting to ER. 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 Daughter notes that she did not drink any etoh in between being in the hospital both times. She was given dose of Ativan x2 while in the ER last evening. * Initially on gabapentin withdrawal protocol -- discontinued when Librium initiated to prevent further adverse effects. Patient also required risperidone x2 * Vitals: 122/82, 96bpm, 36.3C, 95% on RA. Patient had been running 80-90s NSR on monitor * Increased thiamine to 250mg BID * Continue folic acid 400mcg daily, multivitamin * Initially on gabapentin and ativan for etoh withdrawal, but patient with increased hallucinations and somnolence--> switched to Librium with improvement of symptoms, however patient may benefit from mood stabilization with gabapentin. Will reassess in AM, however upon returning to her room evening of 06/29 patient much more calm, awake, no overt signs of withdrawal * Continue Chlordiazepoxide taper -- initiated on 06/29 * AWSS - last score 5 (3) Mood disorder: * Psych consult -- appreciate input * Possible Bipolar type I -- binge drinking, partying, not sleeping for a week at a time, bursts of energy to clean her home, irritability, followed severely depressed episodes where she cannot seem to stop crying and has a very low mood. She denies any SI or HI. * Will defer to psych for initiation of medications (4) Elevated liver enzymes: * AST/ALT 163 and 220 -- improved from 254/328 on 06/28 * Secondary to etoh * Continue to trend morning labs (5) Right hip pain: * Difficulty walking for few days, previously has no issues with R hip. Unable to recall if she fell but has not been able to put much weight on that leg without significant pain and has reduced mobility. * R Hip Xray without fracture, CT head was done and is negative for acute abnormalitis * Consider PT/OT consults in AM * Pain control with small doses of tylenol for now, monitoring LFTs, no narcotics with hallucinations, avoid NSAIDs in the setting of heavy etoh use. (6) Anxiety: * Noted-- increased stressors in her life. Not previously on medication. May benefit from mood stabilizer vs prn vistaril short term * Would avoid SSRI/SNRI to prevent manic episode (7) Hypokalemia: * K 2.5 on initial visit to ER with resulting K 3.6 AM of 06/28. Mag 1.6 -- given 1gm IV * K 2.9 on repeat -- given 40meq PO and added 40meq to IVF * Repeat labs this evening * Continue to monitor (8) Hypomagnesemia: * Mag 1.6 -- given 1gm IV * Repeat * Continue to monitor given continued hypokalemia (9) Macrocytosis: * MCV 103.9 - likely secondary to alcohol use. * Folate wnl, >24.00 * B12 in AM -- of note, patient states she takes B vitamins at home daily * Monitor in AM (10) DVT prophylaxis: * Teds CODE: FULL Dispo: From home, likely to remain in the hospital x 1-2 day for medical management and then possible transfer to inpatient psych vs rehab Admission and Anticipated Discharge Date Admission Date: June 28, 2019 Supervising Physician Co-Signing Physician Notes Attending Attestation - Chart reviewed in detail, care plan d/w GIOVANNY Lira. I agree w/ the grajeda components of her documentation. Cont supportive care for presumed etoh withdrawal and hallucinations. Appreciate psych consultation. Replace electrolyte deficiencies. Sharath Mills MD Subjective Patient evaluated this morning with at bedside. Patient with significant grogginess. Irritable upon waking and discussed returning later to see how she was feeling. States she is having bad leg cramps. Had some upset stomach. Fatigue. States there was an event with a lot of people in one room shouting last evening. stated that she thought he was having an affair. States no women even work for his company. Talked with outside of room. Previous episodes of hallucinations with Ativan administration. Did have episode of increased drinking following sons 5 years ago from overdose. States son's friend who was like a son ended up overdosing a year ago. Patient recently had to put father with dementia in [facility], which she had been extremely close with. He states the patient has a strained relationship with her mother, who has always been critical of her and had been insisting that the patient should be able to take care of her father and provide round the clock care, which he does not believe would be good for his 's mental health. He states they had tried counseling three times in the past but did not find much benefit from it as he felt they could discuss what they were discussing in counseling at home and he felt that they would always [place] back to issues with her mother. Discussed discontinuing Ativan and using Librium moving forward as history of adverse effects. Upon return to the patient's room this afternoon, patient at bedside, eating. Friend and present. Patient much more alert and awake, states she is feeling better. States she got some much needed sleep and was able to take a nap this afternoon. States the medication she received this afternoon had a much better effect and that she was only slightly sleepy about a half hour after administration. Discussed tapering the dose slowly and that we will continue to monitor for signs of withdrawal. Patient denies chest pain, shortness of breath, palpitations, shakiness, fevers, chills, abdominal pain, n/v. She states she wants to make sure she gets medication for reflux because the last time she was in and needed treatment she had terrible reflux. expressed possible want to take patient with him to [place] and possibly have his do inpatient vs outpatient psych treatment so that they can be close by as he is unable to be off work at this time. Review of Systems Review of Systems: All systems reviewed & are unremarkable except as noted in HPI & below Physical Exam Constitutional: WD/WN, vitals as above + lethargic (in AM); no acute distress Eyes: + anicteric sclerae and PERRL ENMT: slightly dry mm Neck: trachea midline, no thyromegaly Respiratory: normal respiratory effort, lungs clear to auscultation Cardiovascular: RRR, no murmur, no edema Gastrointestinal (Abdomen): normal bowel sounds, soft, nontender, no hepatosplenomegaly Skin: no rashes, warm and dry Neurologic: patellar DTR's 2+ bilat, sensation intact and PERRL, EOMI, accommodation nl, no face palsy, no dysarthria moves all extremities; no focal motor deficits Psychiatric: Orientation: alert, oriented to person, oriented to place and oriented to time Eye Contact: good eye contact Speech: no pressured speech Affect: + anxious affect (at times) Thought Process: + flight of ideas Thought Content: + paranoid Hallucinations: + visual hallucinations Lymphatic: no cervical or axillary lymphadenopathy Results & Data ([facility]) Vital Signs (Past 12 Hours) Vital Signs Temp Pulse Resp BP BP Pulse Ox 06/29/19 10:55 37.2 C 78 18 125/80 91 06/29/19 06:31 36.6 C 83 16 108/71 95 06/29/19 05:31 36.4 C L 71 20 124/75 96 06/29/19 03:18 36.6 C 66 16 123/60 97 06/29/19 01:32 90 06/29/19 01:31 36.4 C L 89 18 116/82 86 L 06/29/19 00:13 36.8 C 83 19 146/81 H 95 Laboratory Results 06/29/19 06/29/19 06/28/19 Range/Units 07:26 07:26 22:16 WBC 3.54 L (4.8-10.8) K/uL RBC 3.63 L (4.2-5.4) M/uL Hgb 12.5 (12.0-16.0) g/dL Hct 37.7 (37-47) % MCV 103.9 H (80-100) fL MCH 34.4 H (25-34) pg MCHC 33.2 (32-36) g/dL RDW Std Deviation 53.0 H (36.4-46.3) fL RDW Coeff of Cj 14.0 (11.5-14.5) % Plt Count 74 L (130-400) K/uL MPV 10.3 (7.4-10.4) fL Sodium 144 (136-145) mmol/L Potassium 2.9 L D (3.5-5.1) mmol/L Chloride 114 H (98-107) mmol/L Carbon Dioxide 22 (21-32) mmol/L Anion Gap 8.0 (3-11) BUN 4 L D (7-18) mg/dl Creatinine 0.30 L (0.6-1.2) mg/dl Est Cr Clr Drug Dosing 207.3 ml/min Est GFR ( Amer) > 150.0 Est GFR (Non-Af Amer) 130.7 BUN/Creatinine Ratio 14.4 (10-20) Glucose 78 (70-99) mg/dl Calcium 7.8 L D (8.5-10.1) mg/dl Total Bilirubin 0.7 (0.2-1) mg/dl Direct Bilirubin < 0.1 D (0-0.2) mg/dl AST 163 H (15-37) U/L ALT 220 H (12-78) U/L Alkaline Phosphatase 61 (45-117) U/L Total Protein 6.4 D (6.4-8.2) gm/dl Albumin 3.3 L (3.4-5.0) gm/dl Globulin 3.1 (2.5-4.0) gm/dl Albumin/Globulin Ratio 1.1 (0.9-2) Folate > 24.00 (>5.38) ng/ml PG Care Time/CCT Total # of Minutes Spent Total Time Spent with Patient: Total time spent is greater than 50% in coordination of care (as documented) at patient's floor/unit and/or counseling patient: Coding Level of Care Code 42759 Subseq Hosp Care Lvl 3 Diagnoses Visual hallucinations R44.1 Alcohol withdrawal F10.239 Complication of substance-induced condition: with unspecified complication Mood disorder F39 Elevated liver enzymes R74.8 Right hip pain M25.551 Anxiety F41.9 Hypokalemia E87.6 Hypomagnesemia E83.42 Macrocytosis D75.89 DVT prophylaxis Z29.9 (1) Alcohol withdrawal Complication of substance-induced condition: with unspecified complication Qualified Code(s): F10.239 - Alcohol dependence with withdrawal, unspecified
[2019-06-29] MEDS ORDERED: chlordiazePOXIDE ALCOHOL WITHDRAWL 25MG PO STA (13:36)
[2019-06-29] MEDS: chlordiazePOXIDE HCl 25 MG CAP PO SCH ×2 (14:20→19:39)
[2019-06-29 19:47] LABS: Albumin Level 4.1 gm/dl (3.4-5.0); BUN Creatinine Ratio 9.6 (10-20); Calcium 8.5 mg/dl (8.5-10.1); Creatinine Clr Calc Pharmacy 115.1 ml/min; Est GFR (African American) 124.9; Est GFR (Non-African American) 107.7; Magnesium 1.8 mg/dl (1.8-2.4)
[2019-06-29 19:48] LABS: Potassium 3.9 mmol/L (3.5-5.1)
[2019-06-29 19:49] LABS: Albumin Globulin Ratio 1.2 (0.9-2); Bilirubin,Total 0.7 mg/dl (0.2-1); Globulin 3.6 gm/dl (2.5-4.0); Total Protein 7.7 gm/dl (6.4-8.2)
[2019-06-29] MEDS: THIAMINE HCL 100 MG TAB PO SCH (21:22)
[2019-06-29] MEDS: MAGNESIUM OXIDE 400 MG TAB PO SCH (21:22)
[2019-06-29] MEDS: ERYTHROMYCIN OP OINT 5 MG/GM 3.5 GM TUBE OP SCH (23:35)
[2019-06-30] MEDS: POTASSIUM CHLORIDE 40 MEQ in SODIUM CHLORIDE 0.9% 1000ML 1,000 ML IV SCH ×2 (01:12→08:23)
[2019-06-30] MEDS: chlordiazePOXIDE HCl 25 MG CAP PO SCH ×4 (03:11→21:29)
[2019-06-30] MEDS: ERYTHROMYCIN OP OINT 5 MG/GM 3.5 GM TUBE OP SCH ×6 (03:12→21:30)
[2019-06-30 08:05] LABS: Hematocrit (blood only) 40.8 % (37-47); Hemoglobin 13.8 g/dL (12.0-16.0); Mean Corpuscular Hemoglobin 34.8 pg (25-34); Mean Corpuscular Hgb Conc 33.8 g/dL (32-36); Mean Corpuscular Volume 102.8 fL (80-100); RDW Coefficient of Variation 13.8 % (11.5-14.5); Red Blood Count 3.97 M/uL (4.2-5.4)
[2019-06-30] MEDS: THIAMINE HCL 100 MG TAB PO SCH ×2 (08:16→20:40)
[2019-06-30] MEDS: FOLIC ACID 400 MCG TAB PO SCH (08:18)
[2019-06-30] MEDS: MULTIVITAMIN TAB PO SCH (08:18)
[2019-06-30 08:26] LABS: Mean Platelet Volume 10.8 fL (7.4-10.4); Platelet Count 97 K/uL (130-400)
[2019-06-30 08:38] LABS: Albumin Level 3.8 gm/dl (3.4-5.0); BUN Creatinine Ratio 8.8 (10-20); Calcium 8.9 mg/dl (8.5-10.1); Creatinine Clr Calc Pharmacy 151.7 ml/min; Est GFR (African American) 136.7; Potassium 3.9 mmol/L (3.5-5.1)
[2019-06-30 08:41] LABS: Bilirubin,Total 0.8 mg/dl (0.2-1); Globulin 3.7 gm/dl (2.5-4.0); Total Protein 7.5 gm/dl (6.4-8.2)
[2019-06-30 08:56] LABS: Bilirubin Direct 0.2 mg/dl (0-0.2)
[2019-06-30] MEDS ORDERED: GABAPENTIN 400 MG CAP PO SCH (11:15)
--- NOTE | 2019-06-30 12:11 | Hospitalist Progress Note ---
Date of Service June 30, 2019 Assessment & Plan (1) Visual hallucinations: * RESOLVED -- patient initially with continuing and frequent hallucinations including pirate, a cowboy, 2 other adults who were attempting to break into a car across the street, and multiple children. Patient vini rted a woman in her room who is a good friend of hers, and thought the bed railing is a sleeve of somebody's shirt/coat. Thought there was a movie event that they weren't going to. A green party last evening (on 06/28) with people shouting. Thoughts of having an affair. * 1:1 discontinued -- placed on Q15 minute checks -- this could also be discontinued this evening as patient's status much improved. * History of alcohol abuse. 5 years ago following son's and last year after son's . Recently put father in [facility] for dementia. * Psych consult -- appreciate input -- asked for additional input regarding initiation of mood stabilizer (2) Alcohol withdrawal: * Significant etoh use in the past 2.5 weeks likely triggering her hallucinations. Last drink evening of 06/27 prior to presenting to ER. 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 Daughter notes that she did not drink any etoh in between being in the hospital both times. She was given dose of Ativan x2 while in the ER last evening. * Initially on gabapentin withdrawal protocol -- discontinued when Librium initiated to prevent further adverse effects. Patient had required risperidone x2 overnight 06/28-06/29 * Vitals: 134/84, 65bpm, 97% on RA. Patient had been running 80-90s NSR on monitor * Increased thiamine to 250mg BID on 06/29 -- would continue * Continue folic acid 400mcg daily, multivitamin * Initially on gabapentin and Ativan for etoh withdrawal, but patient with increased hallucinations and somnolence--> switched to Librium with improvement of symptoms, however patient may benefit from mood stabilization with gabapentin. Will reassess in AM, however upon returning to her room evening of 06/29 patient much more calm, awake, no overt signs of withdrawal. On 06/30, patient much improved. Will continue chlordiazepoxide taper * ---> To be decreased to 10mg Q8h on 07/01 and then to 5mg Q12 on 07/02 for 2 more doses, to be completed on 07/03 * AWSS - last score 1 (3) Mood disorder: * Psych consult -- appreciate input * Possible Bipolar type I -- binge drinking, partying, not sleeping for a week at a time, bursts of energy to clean her home, irritability, followed severely depressed episodes where she cannot seem to stop crying and has a very low mood. She denies any SI or HI. * Will defer to psych for initiation of medications (4) Elevated liver enzymes: * AST/ALT 159 and 253 -- improved from 254/328 on 06/28 * Secondary to etoh * Continue to trend morning labs (5) Right hip pain: * Difficulty walking for few days, previously has no issues with R hip. Unable to recall if she fell but has not been able to put much weight on that leg without significant pain and has reduced mobility. * R Hip Xray without fracture, CT head was done and is negative for acute abnormalitis * Pain control with small doses of tylenol for now, monitoring LFTs, no narcotics with hallucinations, avoid NSAIDs in the setting of heavy etoh use. (6) Anxiety: * Noted-- increased stressors in her life. Not previously on medication. May benefit from mood stabilizer vs prn vistaril short term * Would avoid SSRI/SNRI to prevent manic episode (7) Hypokalemia: * K 2.5 on initial visit to ER with resulting K 3.6 AM of 06/28. Mag 1.6 -- given 1gm IV * Resolved -- K 3.9 on 06/30 * Repeat labs this evening * Continue to monitor (8) Hypomagnesemia: * RESOLVED * Mag 1.6 on 06/28-- given 1gm IV * Repeat 2.0 (9) Macrocytosis: * MCV decreased to 102.8 - likely secondary to alcohol use. * Folate wnl, >24.00, B12 also >2000 * Monitor in AM (10) DVT prophylaxis: * Teds * Lovenox Dispo: From home, possible discharge tomorrow then possible outpatient psych program in [place] Admission and Anticipated Discharge Date Admission Date: June 28, 2019 Subjective Patient evaluated up in chair eating lunch with her . Much less groggy. Feeling much improved. No further hallucinations. Discussed librium taper and that we will allow psych to recommend initiating any medications for mood stabilization. Good appetitie. Denies chest pain, shortness of breath, abdominal pain, fever, chills. States she had a bowel movement this morning. Had been voiding frequently with the IV fluids. Hopeful for discharge tomorrow and going to look into facilities in [place] so that the patient can travel back with him and possibly get out patient psych treatment, such as an intensive outpatient day type program. Review of Systems Review of Systems: All systems reviewed & are unremarkable except as noted in HPI & below Physical Exam Constitutional: WD/WN, vitals as above no acute distress Eyes: + anicteric sclerae and PERRL Neck: trachea midline, no thyromegaly Respiratory: normal respiratory effort, lungs clear to auscultation Cardiovascular: RRR, no murmur, no edema Gastrointestinal (Abdomen): normal bowel sounds, soft, nontender, no hepatosplenomegaly Musculoskeletal: no cyanosis or clubbing, extremities motor strength 5/5 Skin: no rashes, warm and dry Neurologic: PERRL, EOMI, accommodation nl, no face palsy, no dysarthria moves all extremities; no focal motor deficits Psychiatric: Orientation: alert, oriented to person, oriented to place and oriented to time Eye Contact: good eye contact Speech: no pressured speech Lymphatic: no cervical or axillary lymphadenopathy Results & Data ([facility]) Vital Signs (Past 12 Hours) Vital Signs Temp Pulse Resp BP BP Pulse Ox 06/30/19 11:00 36.4 C L 65 18 134/84 97 06/30/19 06:50 36.5 C 81 18 149/93 H 95 06/30/19 06:24 36.4 C L 77 18 151/106 H 95 Laboratory Results 06/30/19 06/30/19 06/30/19 Range/Units 07:50 07:50 07:50 WBC 3.50 L (4.8-10.8) K/uL RBC 3.97 L (4.2-5.4) M/uL Hgb 13.8 (12.0-16.0) g/dL Hct 40.8 (37-47) % MCV 102.8 H (80-100) fL MCH 34.8 H (25-34) pg MCHC 33.8 (32-36) g/dL RDW Std Deviation 52.0 H (36.4-46.3) fL RDW Coeff of Cj 13.8 (11.5-14.5) % Plt Count 97 L (130-400) K/uL MPV 10.8 H (7.4-10.4) fL Sodium 139 (136-145) mmol/L Potassium 3.9 (3.5-5.1) mmol/L Chloride 111 H (98-107) mmol/L Carbon Dioxide 20 L (21-32) mmol/L Anion Gap 8.0 (3-11) BUN 4 L (7-18) mg/dl Creatinine 0.41 L (0.6-1.2) mg/dl Est Cr Clr Drug Dosing 151.7 ml/min Est GFR ( Amer) 136.7 Est GFR (Non-Af Amer) 118.0 BUN/Creatinine Ratio 8.8 L (10-20) Glucose 103 H (70-99) mg/dl Calcium 8.9 (8.5-10.1) mg/dl Magnesium 2.0 (1.8-2.4) mg/dl Total Bilirubin 0.8 (0.2-1) mg/dl Direct Bilirubin 0.2 D (0-0.2) mg/dl AST 159 H (15-37) U/L ALT 253 H (12-78) U/L Alkaline Phosphatase 72 (45-117) U/L Total Protein 7.5 (6.4-8.2) gm/dl Albumin 3.8 (3.4-5.0) gm/dl Globulin 3.7 (2.5-4.0) gm/dl Albumin/Globulin Ratio 1.0 (0.9-2) Vitamin B12 > 2000 H (211-911) pg/ml 06/29/19 Range/Units 19:19 WBC (4.8-10.8) K/uL RBC (4.2-5.4) M/uL Hgb (12.0-16.0) g/dL Hct (37-47) % MCV (80-100) fL MCH (25-34) pg MCHC (32-36) g/dL RDW Std Deviation (36.4-46.3) fL RDW Coeff of Cj (11.5-14.5) % Plt Count (130-400) K/uL MPV (7.4-10.4) fL Sodium 140 (136-145) mmol/L Potassium 3.9 D (3.5-5.1) mmol/L Chloride 110 H (98-107) mmol/L Carbon Dioxide 25 (21-32) mmol/L Anion Gap 6.0 (3-11) BUN 5 L (7-18) mg/dl Creatinine 0.54 L (0.6-1.2) mg/dl Est Cr Clr Drug Dosing 115.1 ml/min Est GFR ( Amer) 124.9 Est GFR (Non-Af Amer) 107.7 BUN/Creatinine Ratio 9.6 L (10-20) Glucose 97 (70-99) mg/dl Calcium 8.5 (8.5-10.1) mg/dl Magnesium 1.8 (1.8-2.4) mg/dl Total Bilirubin 0.7 (0.2-1) mg/dl Direct Bilirubin (0-0.2) mg/dl AST 239 H (15-37) U/L ALT 285 H (12-78) U/L Alkaline Phosphatase 76 (45-117) U/L Total Protein 7.7 D (6.4-8.2) gm/dl Albumin 4.1 (3.4-5.0) gm/dl Globulin 3.6 (2.5-4.0) gm/dl Albumin/Globulin Ratio 1.2 (0.9-2) Vitamin B12 (211-911) pg/ml PG Care Time/CCT Total # of Minutes Spent Total Time Spent with Patient: Total time spent is greater than 50% in coordination of care (as documented) at patient's floor/unit and/or counseling patient: Coding Level of Care Code 29678 Subseq Hosp Care Lvl 2 Diagnoses Visual hallucinations R44.1 Alcohol withdrawal F10.239 Complication of substance-induced condition: with unspecified complication Mood disorder F39 Elevated liver enzymes R74.8 Right hip pain M25.551 Anxiety F41.9 Hypokalemia E87.6 Hypomagnesemia E83.42 Macrocytosis D75.89 DVT prophylaxis Z29.9 (1) Alcohol withdrawal Complication of substance-induced condition: with unspecified complication Qualified Code(s): F10.239 - Alcohol dependence with withdrawal, unspecified
--- NOTE | 2019-06-30 17:07 | Communication Note ---
Date of Service: June 30, 2019 Patient's chart reviewed and status has been discussed during morning report with psychiatric nurse liaison and supervising psychiatrist. Visual hallu cinations have resolved, and given information obtained from patient and it seems most likely these hallucinations were in the setting of alcohol withdrawal. Understand concern for symptoms that mimic possible arie; however, we are unable to make a formal psychiatric diagnosis of a mood disorder in the setting of chronic alcohol use to the level patient has reported. It is quite possible that her chronic alcohol use could have contributed greatly to this presentation. While it is recommended that patient pursue outpatient psychiatric treatment after discharge, a period of sobriety from alcohol and other mood altering substances would be necessary in order to formally diagnosis patient with a mood disorder. No indication at this time to start a scheduled mood stabilization agent. Recommend stopping risperidone at this time, and visual hallucinations have resolved. It is documented that patient's is planning to explore psychiatric treatment programs in [place]. Would suggest a dual-diagnosis program that specializes in both substance abuse and psychiatric treatment. No additional recommendations at this time. Supervising physician involved in review and discussion of the patient's case and participated in medical decision making regarding treatment recommendations.
[2019-06-30] MEDS: ENOXAPARIN INJ 30 MG/0.3 ML SYR SQ SCH (17:38)
[2019-06-30] MEDS: MAGNESIUM OXIDE 400 MG TAB PO SCH (20:40)
[2019-06-30] MEDS: ACETAMINOPHEN 325 MG TAB PO PRN (21:29)
[2019-07-01] MEDS: ERYTHROMYCIN OP OINT 5 MG/GM 3.5 GM TUBE OP SCH ×4 (01:48→14:42)
[2019-07-01] MEDS: chlordiazePOXIDE HCl 25 MG CAP PO SCH (05:34)
[2019-07-01] MEDS: FOLIC ACID 400 MCG TAB PO SCH (08:49)
[2019-07-01] MEDS: THIAMINE HCL 100 MG TAB PO SCH (08:49)
[2019-07-01] MEDS: MULTIVITAMIN TAB PO SCH (08:49)
[2019-07-01] MEDS: ENOXAPARIN INJ 30 MG/0.3 ML SYR SQ SCH (08:49)
[2019-07-01 09:44] LABS: Albumin Level 3.8 gm/dl (3.4-5.0); BUN Creatinine Ratio 15.9 (10-20); Bilirubin,Total 0.6 mg/dl (0.2-1); Calcium 9.4 mg/dl (8.5-10.1); Creatinine Clr Calc Pharmacy 113.1 ml/min; Est GFR (African American) 124.1; Est GFR (Non-African American) 107.1; Globulin 3.8 gm/dl (2.5-4.0); Potassium 3.6 mmol/L (3.5-5.1); Total Protein 7.6 gm/dl (6.4-8.2)
--- NOTE | 2019-07-01 13:34 | Discharge Summary ---
Date of Service July 01, 2019 Admission HPI Per Admitting Provider This is a 53 yo F with PMHx of chronic alcohol use, hallucinations, elevated LFTs, hypokalemia who presented to the ER last night for increased hallucinations. The patient returns this morning after being discharged home last evening because of hallucinations worsened. She notes that she was recently down in [place] for 2 weeks, returned on 06/24/19. During that time she would drink up to 12 drinks per night, going from bar to bar late into the night. Since coming home the daughter notes that she has continued to drink however the patient states that her last drink was last evening and only had 1 glass of wine yesterday. Daughter notes that his her behavior regarding alcohol is typical and that she drinks much more often than letting on during my interview. She reports that hallucinations started 2 days ago. She describes it as multiple people including a pirate, cowboy, and two other people who she thought possibly were trying to break into a car across the street from her house, and multiple small children running around. She reports that she attempted to talk to these people last evening but that they would not respond her. She thought it was very strange and felt afraid of these people because she was unsure what they were doing. She also reports last evening after coming home from the ER that she felt as if a shadow was looking in her upstairs hallway, and thought that it was appearing in on her, initially thought maybe it was her , but knew that it could not be him. Patient currently reports there is a woman in her room who is a good friend of hers but that she wont say anything, as pt motions to the wall behind her during the interview, she also thinks the bed railing is a sleeve of somebody's shirt/coat. Patient had burst of energy in the past week where she has been unable to sleep for more than 2 to 3 hours per night. She admits to dressing up and walking around in high heeled shoes all through [place], where normally she would dress in a flat shoe, "like a croc" when she knew she would be walking. Her right hip has been painful for her to place weight on it since coming home Wednesday, and thinks its due to the shoes, but cannot recall if she fell or not. Patient notes she has had the urge to "tear down a closet to clean it" recently at 2am. She denies feeling the urge to buy things impulsively which she cannot afford. She admits to irritability and mood swings daily, followed severely depressed episodes where she cannot seem to stop crying and has a very low mood. Denies suicidal ideations and homicidal ideations. The daughter notes that in 2013 the patient had a similar hallucination episode like this, but was after the of her son. She started using alcohol at that time very heavily which lead to increased visual hallucinations. Daughter cannot recall type of treatment she required after this breakdown. Pt has never has sought out counseling, been evaluated by psychiatry, or been on other forms of medication for mood disorder. Last episode of hallucination was approximately 2 years ago and again involved heavy alcohol use. On a normal day, she has 3-4 drinks at a time. Social Hx -Pt lives independently. Pt works in [place] the majority of the time, and will not be in town until end of July. Daughter is local and lives in her own apartment. -Patient is currently unemployed, occasionally babysits, last time was 3 months ago. 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 -Never used tobacco products, denies illicit drug use -Never incarcerated -Support system includes and daughter, daughter's boyfriend is also present here today Family Hx: - Mother with psychiatric issues, nondiagnosed, including irritability and anger outbursts, mood swings, euphoric at times. Admission Exam Per Admitting Provider Physical Exam: General: awake, alert, speaks rapidly throughout exam, well kempt, cooperative Head: Normocephalic, atraumatic ENT: PERRL, EOMI, no pharyngeal exudate, mucous membranes moist Chest: Clear to auscultation, on room air, no adventitious breath sounds Cardiac: + Sinus tach, no murmur, no JVD, normal peripheral pulses, good capillary refill Abdominal: NABS x 4 quadrants, soft, nontender to palpation, no rebound, guarding or tenderness Extremities: Normal inspection, no peripheral edema or erythema, calfs nontender to palpation Psych: Depressed mood and sad affect, good eye contact, increased restlessness during times looking for things in her purse. Thought process with flight of ideas, easily distracted with stories during conversation, rapid speech, has difficulty using the correct word in sentences to describe things. No SI or HI. Neuro: AAO x 3, strength intact bilaterally and related 5/5, no motor deficits, speech is clear, no peripheral sensory deficits Skin: no rash or erythema Constitutional: WD/WN, vitals as above Eyes: normal visual march by confrontation and + anicteric sclerae Neck: normal visual inspection and trachea midline Respiratory: normal respiratory effort, lungs clear to auscultation Cardiovascular: Rate/Rhythm: regular rhythm and + tachycardic Gastrointestinal (Abdomen): Inspection/Auscultation: abdomen not distended Percussion/Palpation: abdomen soft; abdomen nontender Musculoskeletal: Head/Neck/Chest: normocephalic and head atraumatic Neg for peripheral LE edema, + pedal pulses Skin: no rashes, warm and dry Neurologic: awake; not confused Speech / Cognition: normal speech Expressing concerns appropriately, good verbalization and eye contact Psychiatric: Orientation: oriented x 3 Apperance: appropriately groomed Speech: normal rate/rhythm/volume of speech Affect: + anxious affect Lymphatic: Exam as done by Gayle Richards, Principal Diagnosis Visual Hallucinations Discharge Exam Constitutional WD/WN, vitals as above no acute distress Eyes + anicteric sclerae and PERRL ENMT Ears: no hearing impairment Neck trachea midline, no thyromegaly Respiratory normal respiratory effort, lungs clear to auscultation Cardiovascular RRR, no murmur, no edema Gastrointestinal (Abdomen) normal bowel sounds, soft, nontender, no hepatosplenomegaly Musculoskeletal no cyanosis or clubbing, extremities motor strength 5/5 Skin no rashes, warm and dry Neurologic PERRL, EOMI, accommodation nl, no face palsy, no dysarthria Psychiatric Orientation: alert, oriented x 3 and cooperative Suicidal Thoughts: + reports suicidal thoughts Homicidal Thoughts: + reports homicidal thoughts Lymphatic no cervical or axillary lymphadenopathy Discharge Data Allergies Allergy/AdvReac Type Severity Reaction Status Date / Time codeine AdvReac Vomiting Verified 06/28/19 07:25 lorazepam [From Ativan] AdvReac Confusion Verified 06/29/19 21:35 Consultations 06/28/19 09:31 ED Decision to Admit Stat 06/28/19 12:11 Consult Case Management - Discharge Planning Routine Consult Psychiatry Routine Ordered Studies 06/28/19 08:[address] Hip X-[address] head/brain wo con Stat Hospital Course (1) Visual hallucinations: * RESOLVED -- patient initially with continuing and frequent hallucinations including pirate, a cowboy, 2 other adults who were attempting to break into a car across the street, and multiple children. Patient reported a woman in her room who is a good friend of hers, and thought the bed railing is a sleeve of somebody's shirt/coat. Thought there was a movie event that they weren't going to a constitution party last evening (on 06/28) with people shouting. Thoughts of having an affair as well as babies under the bed. * Patient monitored for DTs given recent heavy alcohol usage -- had periods of agitation requiring risperidol x2. Ativan and gabapentin per alcohol withdrawal protocol, however patient with adverse reaction both in the past and most recent episode (had ativan in ER prior to being discharged and coming back with worsening hallucinations requiring admission -- note, no alcohol consumed between that period of time) so ativan and gabapentin discontinued. * Librium taper initiated on 06/29 -- decreased to 10mg Q8h on 07/01 and then to 5mg Q12 on 07/02 for 2 more doses, to be completed on 07/03. MUCH IMPROVEMENT with librium. No further hallucinations since evening 06/29. * History of alcohol abuse. 5 years ago following son's and last year after son's . Recently put father in jail for dementia. * Psych consult without recommendation for initiation of medication for mood at this time given remote history of heavy alcohol use. (2) Alcohol withdrawal: * Significant etoh use in the past 2.5 weeks likely triggering her hallu cinations. Last drink evening of 06/27 prior to presenting to ER. 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 Daughter noted that she did not drink any etoh in between being in the hospital both times. She was given dose of Ativan x2 while in the ER. * Initially on gabapentin withdrawal protocol -- discontinued when Librium initiated to prevent further adverse effects. Patient had required risperidone x2 overnight 06/28-06/29 * Vitals: 128/85, 65bpm, 18RR, 98% on RA. NSR on monitor tech * Given thiamine 250mg BID, folic acid, multivitamin. * Continue folic acid 400mcg daily, multivitamin * Initially on gabapentin and Ativan for etoh withdrawal, but patient with increased hallucinations and somnolence--> switched to Librium with improvement of symptoms * ---> To be decreased to 10mg Q8h on 07/01 and then to 5mg Q12 on 07/02 for 2 more doses, to be completed on 07/03 * AWSS score 1 (3) Mood disorder: * Psych consult -- appreciate input * Possible Bipolar type I -- binge drinking, partying, not sleeping for a week at a time, bursts of energy to clean her home, irritability, followed severely depressed episodes where she cannot seem to stop crying and has a very low mood. She denies any SI or HI. * Per psych, no indication for initiation of pharmacologic measures at this time * Provided prn vistaril to patient to utilize when librium taper completed until arrives to treatment in [place]. Patient and driving to [facility] going to be touring rehab facilities on Wednesday. (4) Elevated liver enzymes: * Initially elevated and trended down. Secondary to etoh. Advised to avoid all alcohol (5) Right hip pain: * Difficulty walking for few days, previously has no issues with R hip. Unable to recall if she fell but has not been able to put much weight on that leg without significant pain and has reduced mobility. * R Hip Xray without fracture, CT head was done and is negative for acute abnormalitis * Pain control with small doses of tylenol. * avoided NSAIDs in the setting of heavy etoh use. (6) Anxiety: * Noted-- increased stressors in her life. Not previously on medication. May benefit from mood stabilizer . prn vistaril as above. * Avoid SSRI/SNRI to prevent manic episode in case of underlying bipolar as above (7) Hypokalemia: * K 2.5 on initial visit to ER with resulting K 3.6 AM of 06/28. Mag 1.6 -- given 1gm IV * Resolved . K 3.6 (8) Hypomagnesemia: * RESOLVED * Mag 1.6 on 06/28-- given 1gm IV * Repeat 2.0 (9) Macrocytosis: * MCV decreased to 102.8 - likely secondary to alcohol use. * Folate wnl, >24.00, B12 also >2000 (10) DVT prophylaxis: * Erin, lovenox while inpatient From home. Discharged home with . To travel to [place] for intensive outpatient vs inpatient treatment. Will be touring facilities on Wednesday. Consult for nurse navigator to establish new PCP for patient. Discharge Plan Discharge Items Patient Disposition: Home - Self-Care Reason For Visit: HALUCINATIONS Discharge Diagnosis: Visual Hallucinations, secondary to alcohol and ativan usage Condition on Discharge: Good Goals: You have been hospitalized for an acute medical problem. During your stay at [facility], we have made an effort to correct the problem that brought you to the hospital while keeping you as comfortable as possible. Medications were used to bring your condition under control and your discharge instructions will include directions for any medications you should take after leaving the hospital. Please make sure you see your Primary Care Provider as pa rt of your follow up plan. Activity: Resume your previous activity Non-emergency contact: Primary Care Provider Call non-emergency contact if: you have any medication questions Follow-up/Referrals: PCP,NO [Primary Care Provider] - Diet: Regular Addtl Attending Provider Instructions: You have been hospitalized for visual hallucinations. It is likely a combination of dehydration, recent alcohol usage, and adverse reaction to ativan. You have previously been given ativan per alcohol withdrawal protocol, but was then switched to chlordiazepoxide (Librium) and tapered slowly. You will receive your first dose of 10mg this afternoon, and you should continue two more tablets of 10mg spaced eight hours apart. Tomorrow afternoon (2pm on 07/02) you will begin 5mg dose for a total of two doses. You should also continue to take B complex (making sure to include thiamine and folate). These may be purchased over the counter. Please avoid all alcohol, both liquor and hard beer at this time. It is very important that you follow up with a psychiatrist locally when you return from [place]. As you are traveling to [place] with your to look at treatment facilities, you have also been given a short prescription for Vistaril (generic hydroxyzine). As discussed, this acts as an antihistamine like Benadryl, but it is less sedation and is helpful to treat anxiety as needed. If you notice increased fatigue or are not able to take this medication, you should discontinue. A copy of your chart has been requested to provide to you to take with you. You should take this to the facility that is decided on so that they may see your hospital course. You will be set up with an appointment with a primary care provider. It is recommended that you get an ultrasound of your liver to rule out cirrhosis, given the elevation in your liver enzymes. This can be done as an outpatient. Please return to the closest emergency room for any recurrence of symptoms or for any symptoms that are concerning for you. It has been a pleasure being a part of the medical team providing for you during this admission. Take care! Pending Studies at Discharge: No Stand-Alone Forms: [facility], Suicide Prevention Resources Medications and DC Order Prescriptions: New multivitamin [Daily-Hung] Tablet 1 tab PO QAM Qty: 30 RF: 0 thiamine HCl (vitamin B1) [Vitamin B-1] 100 mg Tablet 250 mg PO BID Qty: 30 RF: 0 folic acid 400 mcg Tablet 400 mcg PO QAM 30 Days Qty: 30 RF: 0 chlordiazepoxide HCl 5 mg Capsule 5 mg PO Q12H Qty: 2 RF: 0 chlordiazepoxide HCl 10 mg Capsule 10 mg PO Q8H Qty: 2 RF: 0 hydroxyzine HCl 25 mg tablet 25 mg PO BID PRN (Reason: itching) Qty: 12 RF: 0 Discharge Orders: Discharge Order (Routine); Ordered 07/01/19 Ordered By: Venus Lira Admission Data Admit Date/Time: 06/28/19 10:19 Attending Provider: Sharath Mills Admit Provider: Gayle Richards Primary Care Provider: PCP,NO Other Providers: Gayle Richards ; Kathy Lizarraga Other Interventions: Discharge Summary Assessment (RN) Last Done: 07/01/19 16:23 DC Date/Time DO NOT enter until pt leaves facility: 07/01/19 16:39 Coding Level of Care Code D/C Day Management >30 mins Diagnoses Visual hallucinations R44.1 Alcohol withdrawal F10.239 Complication of substance-induced condition: with unspecified complication Mood disorder F39 Elevated liver enzymes R74.8 Right hip pain M25.551 Anxiety F41.9 Hypokalemia E87.6 Hypomagnesemia E83.42 Macrocytosis D75.89 DVT prophylaxis Z29.9
[2019-07-01] MEDS ORDERED: chlordiazePOXIDE HCl 5 MG CAP PO SCH (15:00)
[2019-07-01] MEDS ORDERED: GABAPENTIN 400 MG CAP PO SCH (23:15)
[2019-07-02] MEDS ORDERED: chlordiazePOXIDE HCl 5 MG CAP PO SCH (18:00)
== END 2019-07-01 16:39 | disposition home or self-care (01) | DRG 125 ==
LOC: ED 07:11 → 2W 10:19 → SUATTDRO 10:19 → 2W 11:26